=== PATIENT | male | born 1960 | race Two or more races ===

== ENCOUNTER → 2017-09-26 | Outpatient (CLI) | payer MEDICARE, MEDICAID ==
[~2017-09-26] MED LIST: ASPI1TAB37 PO; ATO40T PO; DIVA250T3 PO; GLIM4TAB42 OR; ISOS1TAB37 PO; LOSA100T27 PO; LOSA50TA6 PO; METF-370 OR; METF-370 PO; METO25TA5 PO; METO25TA62 PO; SIMV10TA84 OR; SITA100T7 OR; TRIAPOW43 PO; [UNRECOGNIZED DRUG - CODE] SC
[2017-09-26 09:10] VITALS: BP 134/90
[2017-09-26 09:40] VITALS: BP 142/87
[2017-09-26 12:05] LABS: Basophils # (auto) 0 uL; Basophils % (auto) 0.4 % (0.0-2.0); Eosinophils # (auto) 0.1 uL; Eosinophils % (auto) 1.9 % (0.0-7.0); Hematocrit 41.6 % (41.0-53.0); Hemoglobin 14.2 g/dL (13.5-17.5); Lymphocytes # (auto) 0.8 uL; Lymphocytes % (auto) 17.7 % (10.0-50.0); Mean Corpuscular Hgb Conc. 34.2 g/dL (32.0-36.0); Mean Corpuscular Volume 84.8 fL (80.0-100.0); Monocytes # (auto) 0.3 uL; Neutrophils # (auto) 3.4 uL; Nucleated Red Blood Cells % 0.1 %; Platelet Count (auto) 64 10^3/uL (140-450); Red Cell Distribution Width 13.9 % (11.8-14.3); White Blood Cell 4.6 10^3/uL (4.4-10.8)
[2017-09-26 12:16] LABS: BUN/Creatinine Ratio 15.6; Calcium 9.1 mg/dL (8.5-10.1); Potassium 4.2 mmol/L (3.5-5.1)
[2017-09-26 12:33] LABS: INR 1.11 (0.9-1.15); Partial Thromboplastin Time 29.1 sec (22.64-33.71); Prothrombin Time 12.1 sec (9.37-12.3)
== END | disposition home or self-care (01) ==
LOC: Rad HDHVI 08:54
PROVIDERS: ATTEND Internal Medicine Cardiovascular Disease
DX: Z01.818 Encounter for other preprocedural examination (principal); I11.0 Hypertensive heart disease with heart failure; I50.9 Heart failure, unspecified; I72.4 Aneurysm of artery of lower extremity; I71.4 Abdominal aortic aneurysm, without rupture; D64.9 Anemia, unspecified; R79.1 Abnormal coagulation profile
CPT/HCPCS: 36415; 71046; 80048; 85025; 85610; 85730; 93005; G0463

== ENCOUNTER 2017-09-29 08:35 | Day surgery (SDC) | payer MEDICARE, MEDICAID ==
[~2017-09-29] VITALS: Ht 175.3 cm; Wt 90.7 kg
[~2017-09-29 08:35] MED LIST changes: -DIVA250T3 PO; -GLIM4TAB42 OR; -ISOS1TAB37 PO; -LOSA50TA6 PO; -METF-370 OR; -METO25TA5 PO; -SIMV10TA84 OR; -SITA100T7 OR
[2017-09-29] MEDS ORDERED: LIDOCAINE 2%HCL (LOCAL ANESTH.) INJ 20ML MDV ONE (10:13)
[2017-09-29] MEDS ORDERED: IOHEXOL 350 MG/ML 100ML IJ ONE (10:13)
[2017-09-29] MEDS ORDERED: MIDAZOLAM HCL 1MG/1ML-2 ML VIAL ONE (10:16)
[2017-09-29] MEDS ORDERED: ANGIOMAX 250 MG VIAL IV ONE (10:16)
[2017-09-29] MEDS ORDERED: fentaNYL CITRATE 100 MCG/2 ML VL ONE (10:16)
== END 2017-09-29 13:55 | disposition home or self-care (01) ==
LOC: CATH 08:35
PROVIDERS: ATTEND Internal Medicine Cardiovascular Disease
DX: I70.231 Atherosclerosis of native arteries of right leg with ulceration of thigh (principal); I73.9 Peripheral vascular disease, unspecified; E66.9 Obesity, unspecified; Z68.29 Body mass index [BMI] 29.0-29.9, adult; Z88.8 Allergy status to other drugs, medicaments and biological substances; I10 Essential (primary) hypertension; E78.5 Hyperlipidemia, unspecified; Z87.891 Personal history of nicotine dependence
CPT/HCPCS: 36246; 75716; 82962; C1760; C1769; C1887; C1894; J1644; J2250; J3010; J7030; Q9967; 99152

== ENCOUNTER → 2018-04-10 | Outpatient (CLI) | payer MEDICARE, MEDICAID | END | disposition home or self-care (01) | LOC: Rad HDHVI 13:53 | PROVIDERS: ATTEND Internal Medicine Cardiovascular Disease | DX: I10 Essential (primary) hypertension (principal); I48.0 Paroxysmal atrial fibrillation; E11.9 Type 2 diabetes mellitus without complications; E78.5 Hyperlipidemia, unspecified; Z79.82 Long term (current) use of aspirin; Z88.8 Allergy status to other drugs, medicaments and biological substances | CPT/HCPCS: 93306 ==

== ENCOUNTER → 2018-04-14 | Outpatient (CLI) | payer MEDICARE, MEDICAID ==
[~2018-04-14] VITALS: Ht 175.3 cm; Wt 90.7 kg
== END | disposition home or self-care (01) ==
LOC: Rad HDHVI 08:52
PROVIDERS: ATTEND Internal Medicine Cardiovascular Disease
DX: I10 Essential (primary) hypertension (principal); E11.9 Type 2 diabetes mellitus without complications; I48.0 Paroxysmal atrial fibrillation
CPT/HCPCS: 78452; 93017; 96374; A9500

== ENCOUNTER → 2019-03-21 | Outpatient (CLI) | payer MEDICARE, MEDICAID ==
[~2019-03-21] MED LIST changes: +LOSA-39 PO; -LOSA100T27 PO
== END | disposition home or self-care (01) ==
LOC: Rad HDHVI 08:09
PROVIDERS: ATTEND Internal Medicine Cardiovascular Disease
DX: G45.9 Transient cerebral ischemic attack, unspecified (principal); I25.10 Atherosclerotic heart disease of native coronary artery without angina pectoris; I11.0 Hypertensive heart disease with heart failure; I63.9 Cerebral infarction, unspecified
CPT/HCPCS: 93306; 93880

== ENCOUNTER → 2019-03-27 | Outpatient (CLI) | payer MEDICARE, MEDICAID ==
[~2019-03-27] VITALS: Ht 175.3 cm; Wt 93.0 kg
[~2019-03-27] MED LIST changes: -LOSA-39 PO; +LOSA-49 PO
== END | disposition home or self-care (01) ==
LOC: Rad HDHVI 08:20
PROVIDERS: ATTEND Internal Medicine Cardiovascular Disease
DX: I25.10 Atherosclerotic heart disease of native coronary artery without angina pectoris (principal); I63.9 Cerebral infarction, unspecified; E78.00 Pure hypercholesterolemia, unspecified; E78.5 Hyperlipidemia, unspecified; E11.65 Type 2 diabetes mellitus with hyperglycemia; R51 Headache; Z86.19 Personal history of other infectious and parasitic diseases
CPT/HCPCS: 78452; 93017; 96374; A9500

== ENCOUNTER → 2019-08-20 | Outpatient (CLI) | payer MEDICARE, MEDICAID ==
[~2019-08-20] MED LIST changes: +LOSA-39 PO; -LOSA-49 PO
[2019-08-20 12:19] LABS: Basophils # (auto) 0.1 uL; Basophils % (auto) 1.4 % (0.0-2.0); Eosinophils # (auto) 0.2 uL; Hematocrit 44.8 % (41.0-53.0); Hemoglobin 15.6 g/dL (13.5-17.5); Lymphocytes # (auto) 0.9 uL; Lymphocytes % (auto) 21.1 % (10.0-50.0); Mean Corpuscular Hemoglobin 28.8 pg (28.0-32.0); Mean Corpuscular Hgb Conc. 34.8 g/dL (32.0-36.0); Mean Corpuscular Volume 82.7 fL (80.0-100.0); Monocytes # (auto) 0.4 uL; Monocytes % (auto) 8.3 % (0.0-12.0); Neutrophils # (auto) 2.9 uL; Neutrophils % (auto) 65.2 % (37.0-80.0); Nucleated Red Blood Cells % 0.1 %; Platelet Count (auto) 65 10^3/uL (140-450); Red Blood Cells 5.42 10^6/uL (4.5-5.90); Red Cell Distribution Width 15.6 % (11.8-14.3); Urine Blood Negative /uL (Negative); Urine Specific Gravity 1.022 (1.001-1.035); White Blood Cell 4.4 10^3/uL (4.4-10.8)
[2019-08-20 12:32] LABS: Potassium 3.7 mmol/L (3.5-5.1)
[2019-08-20 12:39] LABS: Free T4 (Free Thyroxine) 1.34 ng/dL (0.89-1.76)
[2019-08-20 12:40] LABS: Albumin 3.9 g/dL (3.4-5.0); BUN/Creatinine Ratio 15.7; Bilirubin, Total 0.9 mg/dL (0.2-1.0); Calcium 8.8 mg/dL (8.5-10.1); Prostate Specific Antigen 0.81 ng/mL (0.0-4.0); Total Protein 7.9 g/dL (6.4-8.2)
== END | disposition home or self-care (01) ==
LOC: LAB 08:36
PROVIDERS: ATTEND Internal Medicine Cardiovascular Disease
DX: E03.9 Hypothyroidism, unspecified (principal); K90.9 Intestinal malabsorption, unspecified; C61 Malignant neoplasm of prostate; E29.1 Testicular hypofunction; N39.0 Urinary tract infection, site not specified; D51.9 Vitamin B12 deficiency anemia, unspecified; E11.319 Type 2 diabetes mellitus with unspecified diabetic retinopathy without macular edema; Z79.899 Other long term (current) drug therapy
CPT/HCPCS: 36415; 80053; 80061; 81003; 82306; 82607; 83036; 84153; 84403; 84439; 84443; 85025

== ENCOUNTER → 2019-10-29 | Outpatient (CLI) | payer MEDICARE, MEDICAID ==
[~2019-10-29] MED LIST changes: -METO25TA62 PO; +METO25TA93 PO
== END | disposition home or self-care (01) ==
LOC: Rad HDHVI 10:13
PROVIDERS: ATTEND Internal Medicine Cardiovascular Disease
DX: I51.7 Cardiomegaly (principal); I25.10 Atherosclerotic heart disease of native coronary artery without angina pectoris; I50.33 Acute on chronic diastolic (congestive) heart failure; I42.9 Cardiomyopathy, unspecified; I51.89 Other ill-defined heart diseases
CPT/HCPCS: 93306

== ENCOUNTER → 2024-02-27 | Outpatient (CLI) | payer MEDICARE, MEDICAID ==
[~2024-02-27] VITALS: Ht 170.2 cm; Wt 86.2 kg
[~2024-02-27] MED LIST changes: +ASPI-628 PO; -ASPI1TAB37 PO; -ATO40T PO; +ATOR-507 PO; -LOSA-39 PO; +LOSA-535 PO
== END | disposition home or self-care (01) ==
LOC: Rad HDHVI 09:04
PROVIDERS: ATTEND Internal Medicine Cardiovascular Disease
DX: I11.9 Hypertensive heart disease without heart failure (principal); E11.9 Type 2 diabetes mellitus without complications; E78.00 Pure hypercholesterolemia, unspecified; I73.9 Peripheral vascular disease, unspecified; I42.9 Cardiomyopathy, unspecified; I25.10 Atherosclerotic heart disease of native coronary artery without angina pectoris
CPT/HCPCS: 78452; 93017; 96374; A9500

== ENCOUNTER → 2024-03-13 | Outpatient (CLI) | payer MEDICARE, MEDICAID | END | disposition home or self-care (01) | LOC: Rad HDHVI 12:56 | PROVIDERS: ATTEND Internal Medicine Cardiovascular Disease | DX: R07.89 Other chest pain (principal); E78.5 Hyperlipidemia, unspecified | CPT/HCPCS: 93306 ==

== ENCOUNTER → 2024-04-09 | Outpatient (CLI) | payer MEDICARE, MEDICAID ==
[~2024-04-09] MED LIST changes: +AMLO1TAB22 PO; +INSU1INJ19 SC; +LOSA-534 PO; +METO-158 PO; +SEMA2INJ3 SC; +TRIA37.587 PO
[2024-04-09 14:00] VITALS: BP 144/88; PULSE 74; RESP 18; O2SAT 96
[2024-04-09 14:13] VITALS: BP 135/92; PULSE 73; RESP 18; O2SAT 96
== END | disposition home or self-care (01) ==
LOC: Rad HDHVI 13:55
PROVIDERS: ATTEND Internal Medicine Cardiovascular Disease
DX: Z01.818 Encounter for other preprocedural examination (principal)
CPT/HCPCS: 71046; 93005; G0463

== ENCOUNTER 2024-04-12 09:56 | Day surgery (SDC) | payer MEDICARE, MEDICAID ==
[2024-04-09 16:00] LABS: Basophils # (auto) 0 10 ^3/uL (0-0.2); Basophils % (auto) 0.6 % (0.0-2.0); Eosinophils # (auto) 0.1 10 ^3/uL (0-0.8); Eosinophils % (auto) 2.5 % (0.0-7.0); Hematocrit 43.5 % (41.0-53.0); Hemoglobin 15.3 g/dL (13.5-17.5); Lymphocytes # (auto) 0.7 10 ^3/uL (0.4-5.4); Lymphocytes % (auto) 11.5 % (10.0-50.0); Mean Corpuscular Hemoglobin 29.2 pg (28.0-32.0); Mean Corpuscular Hgb Conc. 35.1 g/dL (32.0-36.0); Mean Corpuscular Volume 83.3 fL (80.0-100.0); Monocytes # (auto) 0.6 10 ^3/uL (0-1.3); Monocytes % (auto) 10.8 % (0.0-12.0); Neutrophils # (auto) 4.3 10 ^3/uL (1.6-8.6); Neutrophils % (auto) 74.6 % (37.0-80.0); Nucleated Red Blood Cells % 0.2 %; Red Blood Cells 5.22 10^6/uL (4.5-5.90); Red Cell Distribution Width 14.6 % (11.8-14.3); White Blood Cell 5.8 10^3/uL (4.4-10.8)
[2024-04-09 16:22] LABS: Chloride 103 mmol/L (98-107); Potassium 3.8 mmol/L (3.5-5.1); Sodium 140 mmol/L (136-145)
[2024-04-09 16:23] LABS: Anion Gap 8 (5-15); Carbon Dioxide 29 mmol/L (20-30)
[2024-04-09 16:24] LABS: Calcium 10.4 mg/dL (8.7-10.4)
[2024-04-09 16:27] LABS: INR 1.11 (0.9-1.15); Partial Thromboplastin Time 29.3 SEC (24.5-34.5); Prothrombin Time 11.7 sec (9.3-11.8)
[2024-04-09 16:28] LABS: BUN/Creatinine Ratio 11.3 (10.0-20.0); Blood Urea Nitrogen 18 mg/dL (9-23); Glucose 98 mg/dL (74-106)
[2024-04-09 16:50] LABS: Anisocytosis Slight; Platelet Estimate Decreased
[~2024-04-12] VITALS: Ht 175.3 cm; Wt 83.9 kg
[2024-04-12] VITALS (8 sets, daily range): BP systolic 103–144; BP diastolic 67–95; PULSE 62–71; RESP 14–20; O2SAT 92–95
[~2024-04-12 09:56] MED LIST changes: -ASPI-628 PO; -LOSA-535 PO; -METO25TA93 PO; -TRIAPOW43 PO; -[UNRECOGNIZED DRUG - CODE] SC
[2024-04-12] MEDS ORDERED: IODIXANOL 320MG/ML 100ML BTL IV ONE ×2 (11:44→12:07)
[2024-04-12] MEDS ORDERED: LIDOCAINE 2%HCL (LOCAL ANESTH.) INJ 20ML MDV ONE (11:44)
[2024-04-12] MEDS ORDERED: MIDAZOLAM HCL 2MG/2ML 2ml VIAL (1mg/ml) ONE (11:44)
[2024-04-12] MEDS ORDERED: VERAPAMIL 2.5MG/ML INJ 2ML VIAL IV ONE (11:44)
[2024-04-12] MEDS ORDERED: fentaNYL CITRATE 100 MCG/2 ML VL ONE (11:44)
[2024-04-12] MEDS ORDERED: HEPARIN SODIUM (PORCINE) 5000 UNITS/ML 1ML VIAL ONE (12:20)
== END 2024-04-12 15:18 | disposition home or self-care (01) ==
LOC: CATH 09:56
PROVIDERS: ATTEND Internal Medicine Cardiovascular Disease
DX: R07.9 Chest pain, unspecified (principal); R06.02 Shortness of breath; I25.3 Aneurysm of heart; I10 Essential (primary) hypertension; Z87.891 Personal history of nicotine dependence
CPT/HCPCS: 36415; 80048; 85025; 85610; 85730; 93458; C1769; C1894; J1644; J2250; J3010; Q9967; 99152; 99153

== ENCOUNTER → 2024-10-24 | Outpatient (CLI) | payer MEDICARE, MEDICAID | END | disposition home or self-care (01) | LOC: Rad HDHVI 15:01 | PROVIDERS: ATTEND Internal Medicine Cardiovascular Disease | DX: I10 Essential (primary) hypertension (principal); E78.5 Hyperlipidemia, unspecified | CPT/HCPCS: 93306 ==

== ENCOUNTER → 2024-11-07 | Outpatient (CLI) | payer MEDICARE, MEDICAID | END | disposition home or self-care (01) | LOC: Rad HDHVI 09:00 | PROVIDERS: ATTEND Internal Medicine Cardiovascular Disease | DX: I10 Essential (primary) hypertension (principal); E78.5 Hyperlipidemia, unspecified | CPT/HCPCS: 93880 ==

== ENCOUNTER 2025-04-23 08:11 | Outpatient (CLI) | payer MEDICARE, MEDICAID ==
[~2025-04-23] VITALS: Ht 175.3 cm; Wt 90.7 kg
[2025-04-23] MEDS ORDERED: ADENOSINE 90 MG/30 ML INJ IV ONE (10:11)
[2025-04-23] MEDS ORDERED: ADENOSINE 76 MG in GIVE UN-DILUTED 0 ML IV ONE (13:15)
== END 2025-04-23 17:00 | disposition home or self-care (01) ==
LOC: Rad HDHVI 08:11
PROVIDERS: ATTEND Internal Medicine Cardiovascular Disease
DX: I49.1 Atrial premature depolarization (principal); I49.3 Ventricular premature depolarization; Z13.6 Encounter for screening for cardiovascular disorders; G45.9 Transient cerebral ischemic attack, unspecified; I73.9 Peripheral vascular disease, unspecified; I42.9 Cardiomyopathy, unspecified; E78.5 Hyperlipidemia, unspecified; E11.42 Type 2 diabetes mellitus with diabetic polyneuropathy; R06.02 Shortness of breath; I11.0 Hypertensive heart disease with heart failure; I50.23 Acute on chronic systolic (congestive) heart failure; I25.10 Atherosclerotic heart disease of native coronary artery without angina pectoris
CPT/HCPCS: 78452; 93017; A9500; J0153